=== PATIENT | female | born 1950 | race Caucasian/White ===

== ENCOUNTER 2018-11-30 14:50 | Outpatient (CLI) | payer MEDICARE, OTHER ==
--- NOTE | 2018-11-30 16:37 | RAD ---
LEFT ANKLE: 11/30/18 Three views. HISTORY: Left ankle pain. Minimal soft tissue swelling. Mild degenerative change at the tibiotalar joint. No fracture or acute osseous abnormality. IMPRESSION: No acute osseous abnormality. POS: [facility]
== END 2018-11-30 14:51 | disposition home or self-care (01) ==
LOC: BICRAD 14:50
PROVIDERS: ATTEND Podiatrist
DX: M25.572 Pain in left ankle and joints of left foot (principal); R60.0 Localized edema

== ENCOUNTER 2019-07-28 14:47 | Outpatient (CLI) | payer MEDICARE, OTHER ==
--- NOTE | 2019-08-11 08:15 | MMO ---
Bilateral MAMMO Bilat Screen [facility]. CLINICAL HISTORY: Patient is 69 years old and is seen for screening. The patient has no family history of breast cancer. The patient has no personal history of cancer. The patient has a history of right Ultrasound Guided Core Biopsy in 2008 - benign. VIEWS: The views performed were: bilateral craniocaudal with tomosynthesis and bilateral mediolateral oblique with tomosynthesis. FILMS COMPARED: The present examination has been compared to prior imaging studies performed at [facility] on 06/26/2015, 06/04/2016 and 12/04/2017. This study has been interpreted with the assistance of computer-aided detection. MAMMOGRAM FINDINGS: There are scattered fibroglandular densities. There are stable benign appearing calcifications seen in both breasts. There are no suspicious masses, suspicious calcifications, or new areas of architectural distortion. IMPRESSION: THERE IS NO MAMMOGRAPHIC EVIDENCE OF MALIGNANCY. A ROUTINE FOLLOW-UP MAMMOGRAM IN 1 YEAR IS RECOMMENDED. THE RESULTS OF THIS EXAM WERE SENT TO THE PATIENT. ACR BI-RADS Category 2 - Benign finding MAMMOGRAPHY NOTE: 1. A negative mammogram report should not delay a biopsy if a dominant of clinically suspicious mass is present. 2. Approximately 10% to 15% of breast cancers are not detected by mammography. 3. Adenosis and dense breasts may obscure an underlying neoplasm. Reported by: ASHLEY QUIÑONEZ MD Electonically Signed: [id number]
== END 2019-07-28 14:48 | disposition home or self-care (01) ==
LOC: BICMAMMO 14:47
PROVIDERS: ATTEND Specialist
DX: Z12.31 Encounter for screening mammogram for malignant neoplasm of breast (principal)
CPT/HCPCS: 77063; 77067

== ENCOUNTER 2020-07-30 14:21 | Outpatient (CLI) | payer MEDICARE, OTHER ==
--- NOTE | 2020-07-30 16:23 | MMO ---
Bilateral MAMMO Bilat Screen [facility]. CLINICAL HISTORY: Patient is 70 years old and is seen for screening. The patient has no family history of breast cancer. The patient has no personal history of cancer. The patient has a history of right Ultrasound Guided Core Biopsy in 2008 - benign. VIEWS: The views performed were: right craniocaudal. FILMS COMPARED: The present examination has been compared to prior imaging studies performed at [facility] on 07/28/2019, and at [facility] on 06/04/2016 and 12/04/2017. This study has been interpreted with the assistance of computer-aided detection. MAMMOGRAM FINDINGS: There are scattered fibroglandular densities. Benign calcifications are noted bilaterally. There are no suspicious masses, suspicious calcifications, or new areas of architectural distortion. IMPRESSION: THERE IS NO MAMMOGRAPHIC EVIDENCE OF MALIGNANCY. A ROUTINE FOLLOW-UP MAMMOGRAM IN 1 YEAR IS RECOMMENDED. THE RESULTS OF THIS EXAM WERE SENT TO THE PATIENT. ACR BI-RADS Category 2 - Benign finding MAMMOGRAPHY NOTE: 1. A negative mammogram report should not delay a biopsy if a dominant of clinically suspicious mass is present. 2. Approximately 10% to 15% of breast cancers are not detected by mammography. 3. Adenosis and dense breasts may obscure an underlying neoplasm. Reported by: SRIDHAR MONTE MD Electonically Signed: [id number]
== END 2020-07-30 14:22 | disposition home or self-care (01) ==
LOC: BICMAMMO 14:21
PROVIDERS: ATTEND Specialist
DX: Z12.31 Encounter for screening mammogram for malignant neoplasm of breast (principal); Z91.89 Other specified personal risk factors, not elsewhere classified
CPT/HCPCS: 77063; 77067

== ENCOUNTER 2021-08-01 11:02 | Outpatient (CLI) | payer MEDICARE, OTHER | END 2021-08-01 11:03 | disposition home or self-care (01) | LOC: BICMAMMO 11:02 | PROVIDERS: ATTEND Specialist | DX: Z12.31 Encounter for screening mammogram for malignant neoplasm of breast (principal); Z91.89 Other specified personal risk factors, not elsewhere classified | CPT/HCPCS: 77063; 77067 ==

== ENCOUNTER 2022-08-13 14:59 | Outpatient (CLI) | payer MEDICARE | END 2022-08-13 15:00 | disposition home or self-care (01) | LOC: BICMAMMO 14:59 | PROVIDERS: ATTEND Specialist | DX: Z12.31 Encounter for screening mammogram for malignant neoplasm of breast (principal); Z91.89 Other specified personal risk factors, not elsewhere classified | CPT/HCPCS: 77063; 77067 ==

== ENCOUNTER 2023-02-27 08:45 | Outpatient (CLI) | payer MEDICARE ==
[2023-02-27] MEDS ORDERED: Iopamidol 370 76% 100 ML VIAL ONE (09:28)
== END 2023-02-27 08:46 | disposition home or self-care (01) ==
LOC: CT 08:45
PROVIDERS: ATTEND Plastic Surgery Surgery of the Hand
DX: I65.29 Occlusion and stenosis of unspecified carotid artery (principal)
CPT/HCPCS: 70498; 82565; Q9967

== ENCOUNTER 2023-09-14 14:27 | Outpatient (CLI) | payer MEDICARE | END 2023-09-14 14:28 | disposition home or self-care (01) | LOC: BICMAMMO 14:27 | PROVIDERS: ATTEND Specialist | DX: Z12.31 Encounter for screening mammogram for malignant neoplasm of breast (principal); M81.0 Age-related osteoporosis without current pathological fracture; Z91.89 Other specified personal risk factors, not elsewhere classified | CPT/HCPCS: 77063; 77067; 77080 ==

== ENCOUNTER 2024-07-14 12:41 | Outpatient (CLI) | payer MEDICARE | END 2024-07-14 12:42 | disposition home or self-care (01) | LOC: BICRAD 12:41 | PROVIDERS: ATTEND Specialist | DX: M54.51 Vertebrogenic low back pain (principal); M43.16 Spondylolisthesis, lumbar region; M46.06 Spinal enthesopathy, lumbar region | CPT/HCPCS: 72100 ==

== ENCOUNTER 2024-08-03 10:24 | Outpatient (CLI) | payer MEDICARE | END 2024-08-03 10:25 | disposition home or self-care (01) | LOC: MRI 10:24 | PROVIDERS: ATTEND Specialist | DX: M51.360 Other intervertebral disc degeneration, lumbar region with discogenic back pain only (principal); M51.370 Other intervertebral disc degeneration, lumbosacral region with discogenic back pain only; M48.061 Spinal stenosis, lumbar region without neurogenic claudication; M43.16 Spondylolisthesis, lumbar region | CPT/HCPCS: 72148 ==

== ENCOUNTER 2024-09-28 13:09 | Emergency (ER) | payer MEDICARE ==
[~2024-09-28 13:09] MED LIST: Iopamidol-370 76% 500 ML MDV (1 ML CHARGE) ONE
[2024-09-28] MEDS ORDERED: diphenhydrAMINE 50 MG/ML VIAL ONE (14:31)
[2024-09-28] MEDS ORDERED: Acetaminophen 500 MG TAB ONE (14:31)
[2024-09-28] MEDS ORDERED: methylPREDNISolone Sod Succ 40 MG VIAL ONE (14:32)
[2024-09-28] MEDS ORDERED: Famotidine/PF 20 mg/2ml Vial ONE (14:32)
[2024-09-28 15:49] LABS: Bacteria/HPF None Seen HPF (None Seen); Bilirubin Negative (Negative); Blood, Urine Negative (Negative); CAUTI Indications for Culture Dysuria,urgency,freq; Clarity Clear (Clear); Glucose, Urine (Dipstick) Normal (Negative); Ketone, Urine Trace mg/dL (Negative); Leukocyte Negative Leu/uL (Negative); Nitrite Negative (Negative); Protein, Urine (Dipstick) Negative (Neg-Trace); RBC/HPF 0-3 HPF (0-3); Specific Gravity, Urine 1.009 (1.002-1.036); Squamous Epithelial 0-3 HPF (0-3); Urobilinogen Normal mg/dL (Less than 2); WBC/HPF 0-3 HPF (0-3)
[2024-09-28 15:51] LABS: Urine Culture Reflex No No
[2024-09-28 15:53] LABS: #Basophils 0.03 10x3/uL (0.0-0.2); #Eosinophils Less than 0.03 10x3/uL (0.0-0.7); %Basophils 0.3 % (0.0-1.0); %Eosinophils 0.1 % (0.0-10.0); %Lymphocytes 10.4 % (21.0-51.0); %Monocytes 11.7 % (0.0-10.0); %Neutrophils 76.9 % (42.0-75.0); Hematocrit 37.2 % (36.0-47.0); Hemoglobin 12.3 g/dL (12.0-16.0); Mean Corpuscular HGB CONC 33.1 g/dL (32.0-36.0); Mean Corpuscular Hemoglobin 27.7 pg (27.0-31.0); Mean Corpuscular Volume 83.8 fL (78.0-98.0); Platelet Count 311 10x3/uL (130-400); RBC Distribution Width 13.7 % (11.5-14.5); Red Blood Cell (RBC) Count 4.44 mill/uL (4.20-5.40)
[2024-09-28 16:06] LABS: ALT (SGPT) 15 U/L (Less than 34); AST (SGOT) 29 U/L (11-34); Albumin 2.6 g/dL (3.1-4.5); Alkaline Phosphatase 192 U/L (40-110); Anion Gap 16 mmol/L (10-20); BUN (Urea Nitrogen) 12 mg/dL (9.8-20.1); Bilirubin, Total 0.9 mg/dL (0.3-1.2); CK (CPK) 25 U/L (29-168); Calc. Creatinine Clearance 0 mL/min (70-130); Calcium 8.6 mg/dL (7.8-10.44); Carbon Dioxide 20 mmol/L (23-31); Chloride 106 mmol/L (98-107); Estimated GFR 95; Globulin 4.5 g/dL (2.4-3.5); Glucose 96 mg/dL (83-110); Lipase 18 U/L (8-78); Magnesium 1.9 mg/dL (1.6-2.6); Potassium 4.5 mmol/L (3.5-5.1); Protein, Total 7.1 g/dL (5.8-8.1); Sodium 137 mmol/L (136-145)
[2024-09-28 16:08] LABS: Troponin I Less than 0.010 ng/mL (< 0.028)
== END 2024-09-28 17:52 | disposition home or self-care (01) ==
LOC: ERS 13:09
DX: R10.13 Epigastric pain (principal); R10.12 Left upper quadrant pain; K59.00 Constipation, unspecified; M79.601 Pain in right arm; E03.9 Hypothyroidism, unspecified; E78.00 Pure hypercholesterolemia, unspecified; Z79.890 Hormone replacement therapy; Z79.82 Long term (current) use of aspirin; Z79.899 Other long term (current) drug therapy
CPT/HCPCS: 73060; 74177; 81001; 82550; 83690; 83735; 84484; 93005; 96374; 96375; 99284; J1200; J2919; J3490; Q9967; 80053; 84443; 85025

== ENCOUNTER 2024-10-07 09:13 | Outpatient (CLI) | payer MEDICARE | END 2024-10-07 09:14 | disposition home or self-care (01) | LOC: BICRAD 09:13 | PROVIDERS: ATTEND Specialist | DX: M54.50 Low back pain, unspecified (principal); M47.816 Spondylosis without myelopathy or radiculopathy, lumbar region; Z98.1 Arthrodesis status; Z90.49 Acquired absence of other specified parts of digestive tract | CPT/HCPCS: 72100 ==